=== PATIENT | female | born 1965 | race Caucasian/White ===

== ENCOUNTER 2017-05-01 04:29 | Emergency (ER) | payer OTHER ==
[~2017-05-01] VITALS: Ht 162.6 cm; Wt 72.6 kg
[~2017-05-01 04:29] MED LIST: HYDROCHLOROTHIAZIDE; VENLAFAXINE; [UNRECOGNIZED DRUG - OTHER]
--- OUTSIDE RECORDS SUMMARY | 2017-05-01 04:32 | XMS REPORT | Clinical Summary ---
Author Author [facility] Organization [facility] Address Unknown Phone Unavailable Care Team Providers Care [employer] Name Role Phone Asked, Pcp PCP Unavailable Allergies Not on File Current Medications Prescription Sig. Disp. Refills Start End Date Status Date lisinopril Take 10 mg by mouth Active (PRINIVIL,ZESTRIL) 10 mg daily. tablet keTOROlac (TORadol) 10 mg Take 10 mg by mouth every Active tablet 6 (six) hours as needed for moderate pain. Active Problems Not on file Encounters Date Type Specialty Care Team Description 03/18/2017 Office Visit Urology Kenzie Mehta MD Flank pain, chronic (Primary Dx); Renal cyst after 04/30/2016 Social History Tobacco Use Types Packs/Day Years Used Date Former Smoker Quit: 1994 Smokeless Tobacco: Former User Alcohol Use Drinks/Week oz/Week Comments Yes Sex Assigned at Date Recorded Not on file Last Filed Vital Signs Not on file Plan of Treatment Date Type Specialty Care Team Description 09/16/2017 Office Visit Urology Kenzie Mehta MD [address] [place] [address] [phone] Health Maintenance Due Date Last Done Comments PAP SMEAR 02/07/1984 COLONOSCOPY 2013 MAMMOGRAM 2013 INFLUENZA VACCINE 09/22/2016 Results * POC urinalysis dipstick (03/18/2017 3:56 PM) Component Value Ref Range Color urine, POC Yellow Clarity urine, POC Clear Glucose urine, POC Negative Negative Bilirubin urine, POC Negative Negative Ketones urine, POC Negative Negative Specific gravity urine, 1.015 1.005 - 1.030 POC Blood urine, POC Negative Negative pH urine, POC 7.0 5.0, 5.5, 6.0, 6.5, 7.0, 7.5, 8.0, 8.5 Protein urine, POC Negative Negative Urobilinogen urine, POC <2.0 <2.0 Nitrite urine, POC Negative Negative Leukocyte esterase urine, Trace (A) Negative POC Specimen Performing Laboratory Urine after 04/30/2016 Insurance Payer Benefit Subscriber ID Type Phone Address Plan / Group [facility] xxxxxxxxx HMO/PPO THCARE CHOICE/CHO [place] [id number]
--- NOTE | 2017-05-01 05:08 | Diagnostic Imaging Report ---
History:Dizziness Comparison studies:None Technique: Axial images were obtained from the skull base to the vertex. Coronal and sagittal images reconstructed from the axial data. Intravenous contrast: None Findings: Scalp/skull: No abnormalities. Extra-axial spaces: No masses. No fluid collections. Brain sulci: Mildly prominent. Ventricles: Normal in appearance. No hydrocephalus. Parenchyma: No masses, hemorrhage, acute or chronic cortical vascular insults. Sellar/suprasellar region: No abnormalities. Craniocervical junction: Patent foramen magnum. No Chiari one malformation. Incidental findings: Atherosclerotic calcifications in the carotid siphons . Impression: No acute abnormalities. Chronic findings: 1. Mild generalized volume loss. 2. No acute intracranial abnormalities Signed by: Dr. Arnold Bianchi M.D. on 05/01/2017 5:04 AM
[2017-05-01 05:10] VITALS: BP 154/87
== END 2017-05-01 05:17 | disposition home or self-care (01) ==
LOC: ER 04:29
DX: R42 Dizziness and giddiness (principal); H81.13 Benign paroxysmal vertigo, bilateral; I10 Essential (primary) hypertension
CPT/HCPCS: 70450; 99283